=== PATIENT | male | born 1960 | race Caucasian/White ===

== ENCOUNTER 2020-06-16 05:37 | Emergency (ER) | payer OTHER ==
--- NOTE | 2020-06-16 05:51 | NUR ---
CALLED FOR TRIAGE , NO ANSWER
--- NOTE | 2020-06-16 06:03 | NUR ---
CALLED FOR TRIAGE , NO ANSWER
--- NOTE | 2020-06-16 06:22 | NUR ---
CALLED PT TO THE TRIAGE ROOM, NO RESPONSE
[2020-06-17] MEDS ORDERED: LISI1TAB55 PO (16:00)
== END 2020-06-16 06:23 | disposition left against medical advice (07) ==
LOC: ER 05:41
DX: Z02.89 Encounter for other administrative examinations (principal); Z53.21 Procedure and treatment not carried out due to patient leaving prior to being seen by health care provider

== ENCOUNTER 2020-06-17 13:35 | Inpatient (IN) | payer OTHER ==
[~2020-06-17] VITALS: Ht 172.7 cm; Wt 67.1 kg
--- NOTE | 2020-06-17 14:09 | NUR ---
IV access inserted on RFA#20, blood drawn and sent to labs, urine speceimen sent to lab.
[2020-06-17 14:29] LABS: BASOPHILS % (AUTO) 0.2 % (0.0-2.0); EOSINOPHILS % (AUTO) 0.9 % (0.0-6.0); HEMATOCRIT 39 % (39-51); HEMOGLOBIN 13.1 g/dL (13.5-17.5); LYMPHOCYTES # (AUTO) 1.5 /CMM (0.8-4.8); LYMPHOCYTES % (AUTO) 12.5 % (20.0-44.0); MEAN CORPUSCULAR HGB CONC 34 g/dl (31.0-36.0); MEAN CORPUSCULAR VOLUME 95 fL (80-96); MONOCYTES # (AUTO) 0.6 /CMM (0.1-1.30); MONOCYTES % (AUTO) 4.8 % (2.0-12.0); NEUTROPHILS # (AUTO) 9.7 /CMM (1.8-8.9); NEUTROPHILS % (AUTO) 81.6 % (43.0-81.0); PLATELET COUNT (AUTO) 309 /CMM (150-450); RED BLOOD CELL COUNT(AUTO) 4.11 MIL/uL (4.5-6.0); WHITE BLOOD COUNT (AUTO) 11.9 K/uL (4.3-11.0)
[2020-06-17] MEDS ORDERED: IV NS 0.9% 1,000 ML BAG IV ONE ×2 (14:30→15:00)
[2020-06-17 14:31] LABS: BILIRUBIN,URINE Negative (NEGATIVE); COLOR,URINE YELLOW (YELLOW); LEUKOCYTE ESTERASE ,URINE Negative (NEGATIVE); NITRITE, URINE Negative (NEGATIVE); PROTEIN,URINE Negative (NEGATIVE); UGLUCOSE Negative (NEGATIVE); UROBILINOGEN,URINE 0.2 EU/dL (0.2)
[2020-06-17 14:34] LABS: BACTERIA,URINE None seen /HPF (None Seen); SQUAMOUS EPITHELIAL CELL,UR None Seen /HPF (None Seen); WBC,URINE 0-2 /HPF (0-3)
[2020-06-17 14:42] LABS: ALBUMIN 4.1 g/dL (3.4-5.0); BILIRUBIN,DIRECT 0.1 mg/dL (0.0-0.2); BILIRUBIN,TOTAL 0.3 mg/dL (0.2-1.0); CALCIUM, SERUM 10.1 mg/dL (8.5-10.1); CREATININE 1.2 mg/dL (0.6-1.3); TOTAL PROTEIN, SERUM 8.4 g/dL (6.4-8.2)
--- NOTE | 2020-06-17 14:57 | NUR ---
ADMISSION FOR APPENDICITIS
[2020-06-17] MEDS ORDERED: PIPERACILLIN /TAZOBACTAM 3.375 G in IV D5W 50 ML IV ONE (15:00)
[2020-06-17] MEDS ORDERED: PIPERACILLIN /TAZOBACTAM 3.375 G VIAL IV ONE (15:51)
[2020-06-17] MEDS ORDERED: LISI1TAB55 PO (16:00)
--- NOTE | 2020-06-17 16:14 | NUR ---
NURSING SUP GAVE M/S BED 310-1.
--- NOTE | 2020-06-17 16:17 | NUR ---
REPORT GIVEN TO CYNDI UNDERWOOD FOR CONTINUITY OF CARE
--- NOTE | 2020-06-17 16:20 | NUR ---
MS RN NOTE RECEIVED PATIENT FROM ER. PATIENT IS IN NO ACUTE DISTRESS. PATIENT IS ON ROOM AIR, TOLERATING WELL. PATIENT IS HERE FROM ACUTE APPENDICITIS. PATIENT IS NPO FOR NOW, UNTIL FURTHER ORDERS. PATIENT IS AMBULATORY. SAFETY PRECAUTIONS ARE ON, BED IN THE LOWEST POSITION, SIDE RAILS ARE UP, CALL LIGHT WITHIN REACH. WILL CONTINUE TO MONITOR CLOSELY.
[2020-06-17] MEDS ORDERED: ACETAMINOPHEN 325 MG TABLET PO PRN (17:30)
[2020-06-17] MEDS ORDERED: ONDANSETRON HCL/PF 4 MG/2 ML VIAL IV PRN (17:30)
[2020-06-17] MEDS ORDERED: ZOLPIDEM TARTRATE 5 MG TABLET PO PRN (17:30)
[2020-06-17] MEDS ORDERED: HYDROCODONE/APAP 5/325MG TABLET PO PRN (17:30)
[2020-06-17] MEDS ORDERED: HYDROMORPHONE 1 MG/1 ML DISP.SYRIN IV PRN (17:30)
[2020-06-17] MEDS ORDERED: POTASSIUM CHLORIDE IV SCH ×2 (17:30)
[2020-06-17] MEDS ORDERED: SODIUM CHLORIDE IV SCH ×2 (17:30)
--- NOTE | 2020-06-17 19:01 | NUR ---
MS RN CLOSING NOTE PATIENT IS IN NO ACUTE DISTRESS. PATIENT IS ON ROOM AIR, TOLERATING WELL. PATIENT IS HERE FROM ACUTE APPENDICITIS. PATIENT IS NPO FOR NOW, UNTIL FURTHER ORDERS. PATIENT IS AMBULATORY. SAFETY PRECAUTIONS ARE ON, BED IN THE LOWEST POSITION, SIDE RAILS ARE UP, CALL LIGHT WITHIN REACH. PATIENT IS IN THE PROCESS OF BEING TRANSFERRED TO [facility] FOR FUTURE CARE. ENDORSE PATIENT TO VACCINE CUSTOMER REPRESENTATIVE NURSE FOR MECHE.
--- NOTE | 2020-06-17 19:30 | NUR ---
MS/RN OPENING NOTE RECEIVED PATIENT RESTING IN BED. AWAKE, ALERT AND ORIENTED X 4. ABLE TO MAKE NEEDS KNOWN. NO COMPLAINTS OF PAIN AT THIS TIME. CONTINUES ON ROOM AIR WITH NO SIGNS OR SYMPTOMS OF RESPIRATORY DISTRESS NOTED. IV ACCESS TO RIGHT WRIST INTACT AND PATENT. CONTINUES ON NPO STATUS WITH ANTICIPATION OF TRANSFER TO [facility] THIS SHIFT. CALL LIGHT WITHIN REACH. ASPIRATION, FALL AND SAFETY PRECAUTIONS MAINTAINED. WILL CONTINUE TO MONITOR.
[2020-06-17 20:30] VITALS: BP 137/74
--- NOTE | 2020-06-17 20:30 | NUR ---
MS/RN NOTE RECEIVED CALL FROM LINSE[facility]. STATES PATIENT HAS BED 213-A AT [facility]. [facility] TO ARRIVE AROUND 10PM FOR TRANSPORT. WILL NOTIFY PATIENT OF UPDATE.
[2020-06-17] MEDS ORDERED: LEVOFLOXACIN 500 MG /D5W 100ML 500 MG in PREMIX 1 EA IV SCH (21:00)
[2020-06-17] MEDS ORDERED: METRONIDAZOLE 500MG/ NS 100ML 500 MG in PREMIX 1 EA IV SCH (21:00)
--- NOTE | 2020-06-17 22:20 | NUR ---
MS/BOOM STICK WORKER NOTE PATIENT TRANSFERRED TO [facility] VIA GURNEY AND 2 HELPER MARBLE FINISHER. ALL BELONGINGS GIVEN TO PATIENT. IV ACCESS REMAINS TO RIGHT WRIST #20G. PATIENT IS ALERT AND ORIENTED X 4. NO COMPLAINTS OF PAIN AT DISCHARGE. ABLE TO SIGN ALL DISCHARGE PAPERWORK. PATIENT REMAINS NPO AT THIS TIME. REPORT GIVEN TO DWIGHT AT [facility].
== END 2020-06-18 01:07 | disposition short-term general hospital (02) | DRG 254 ==
LOC: ER 13:38 → TELE 16:56
PROVIDERS: ADMIT Internal Medicine; ATTEND Internal Medicine
DX: K35.80 Unspecified acute appendicitis (principal); E87.2 Acidosis; I10 Essential (primary) hypertension; Z83.3 Family history of diabetes mellitus
CPT/HCPCS: 36415; 71045-TC; 80048-TC; 80076-TC; 81001; 83605-TC; 83690-TC; 85025-TC; 85730-TC; 87040-TC; A4216; G0378; J1956; J2543; J3480; J7050; J7060